=== PATIENT | male | born 1980 | race Caucasian/White ===

== ENCOUNTER 2018-11-04 07:06 | Day surgery (SDC) | payer OTHER, BC ==
--- NOTE | 2018-11-03 12:17 | PCM.PREANE ---
Preanesthetic Assessment - Anesthesia/Transfusion/Family Hx Anesthesia History: Prior Anesthesia Without Reaction Family History of Anesthesia Reaction: No Transfusion History: No Prior Transfusion(s) Intubation History: Unknown - Review of Systems General: No Symptoms Pulmonary: No Symptoms (Former smoker quit 8 years ago. ETOH: couple drinks per week.) Cardiovascular: No Symptoms Gastrointestinal: No Symptoms (GERD on occasion with spicey food.) Neurological: No Symptoms Other: Reports: None - Physical Assessment NPO Status Date: 11/03/18 NPO Status Time: 19:00 Pulse: 63 O2 Sat by Pulse Oximetry: 96 Respiratory Rate: 16 Blood Pressure: 112/66 Temperature: 36.1 C Height: 1.63 m Weight: 77 kg ASA Class: 1 Mental Status: Alert & Oriented x3 Airway Class: Mallampati = 3 Dentition: Reports: Broken Tooth/Teeth, Caries Thyro-Mental Finger Breadths: 3 Mouth Opening Finger Breadths: 3 ROM/Head Extension: Full Lungs: Clear to Auscultation, Normal Respiratory Effort Cardiovascular: Regular Rate, Regular Rhythm, No Murmurs - Lab Values: Laboratory Last Values MRSA (PCR) Negative 11/02/18 10:28 All labs reviewed and noted and within acceptable ranges to proceed with scheduled procedure. - Allergies Allergies/Adverse Reactions: Allergies Allergy/AdvReac Type Severity Reaction Status Date / Time No Known Allergies Allergy Verified 11/03/18 13:32 - Anesthesia Plan Pre-Op Medication Ordered: None - Acknowledgements Anesthesia Type Planned: General Anesthesia (Right interscalene block under US guidance for post opertive pain control requested by Dr. Kelly.) Pt an Appropriate Candidate for the Planned Anesthesia: Yes Alternatives and Risks of Anesthesia Discussed w Pt/Guardian: Yes Pt/Guardian Understands and Agrees with Anesthesia Plan: Yes PreAnesthesia Questionnaire HEENT History: Reports: None Cardiovascular History: Reports: None Respiratory History: Reports: None Gastrointestinal History: Reports: None Genitourinary History: Reports: None NET APPLICATION SUPPORT SPECIALIST History: Reports: None Musculoskeletal History: Reports: Other (See Below) Other Musculoskeletal History: rotator cuff tear Neurological History: Reports: None Psychiatric History: Reports: None Endocrine/Metabolic History: Reports: None Hematologic History: Reports: None Immunologic History: Reports: None Oncologic (Cancer) History: Reports: None Dermatologic History: Reports: None - Past Surgical History Head Surgeries/Procedures: Reports: None HEENT Surgical History: Reports: None Cardiovascular Surgical History: Reports: None Respiratory Surgical History: Reports: None GI Surgical History: Reports: None Female Surgical History: Reports: None Male Surgical History: Reports: Vasectomy Endocrine Surgical History: Reports: None Neurological Surgical History: Reports: None Oncologic Surgical History: Reports: None Dermatological Surgical History: Reports: None - HOME MEDS Home Medications: Home Meds Acetaminophen/HYDROcodone [[place] 325-5 MG] 1 - 2 tab PO Q6H PRN #40 tablet 11/04 [Rx] Cyclobenzaprine [Flexeril] 10 mg PO Q12H PRN #30 tab 11/04/18 [Rx] - CURRENT (IN HOUSE) MEDS Current Meds: Current Medications Epinephrine HCl (Adrenalin) 3 mg .XX ONETIME ETHEL Stop: 11/04/18 14:00 Lactated Ringer's (Ringers, Lactated) 1,000 mls @ 125 mls/hr IV ASDIRECTED ETHEL Stop: 11/04/18 23:00 Lidocaine/Sodium Bicarbonate (Buffered Lidocaine 1% In Ns 8.4%) 0.25 ml IDERM ONETIME PRN PRN Reason: Prior to IV Start Stop: 11/04/18 18:00 Sodium Chloride (Saline Flush) 10 ml FLUSH ASDIRECTED PRN PRN Reason: Keep Vein Open Stop: 11/04/18 18:00
[~2018-11-04 07:06] MED LIST: EPINEPHrine 1 MG/ML 30 ML MDV SCH; EPINEPHrine 1 MG/ML SDV ONE; Lactated Ringers 1,000 ML IV SCH; Lidocaine 1% 4 ML ONE; Lidocaine 1%/Sod Bicarbonate in NS 8.4% 1 ML Syringe IDERM PRN; Midazolam 1 MG/ML 2 ML SDV ONE; Ropivacaine 0.5% 5 MG/ML 30 ML SDV ONE; Sodium Chloride 0.9% 10 ML Syringe FLUSH PRN; fentaNYL 250 MCG/5 ML SDV ONE
[2018-11-04] MEDS ORDERED: Propofol 200 MG/20 ML SDV ONE ×2 (08:00→08:04)
[2018-11-04] MEDS ORDERED: Midazolam 1 MG/ML 2 ML SDV ONE (08:04)
[2018-11-04] MEDS ORDERED: Ketorolac 30 MG/ML SDV ONE ×2 (08:04→08:05)
[2018-11-04] MEDS ORDERED: Lactated Ringers 1,000 ML ONE ×2 (08:04→10:24)
[2018-11-04] MEDS ORDERED: Ondansetron 4 MG/2 ML SDV ONE (08:04)
[2018-11-04] MEDS ORDERED: fentaNYL 100 MCG/2 ML SDV ONE (08:04)
[2018-11-04] MEDS ORDERED: ceFAZolin 1 GM Vial ONE ×2 (08:04→09:21)
[2018-11-04] MEDS ORDERED: Lidocaine 1% 4 ML ONE (08:04)
[2018-11-04] MEDS ORDERED: Dexamethasone 4 MG/ML 5 ML MDV ONE (08:05)
--- NOTE | 2018-11-04 08:17 | PCM.SN ---
- Free Text/Narrative Note: Anesthesia Note: (Right Interscalene Block Note) Date: 11/04/2018 Time Out: 0750 Start: 0750 Stop: 0808 Surgical Procedure: Right SVA with Repeat Rotator Cuff Repair Diagnosis Right shoulder rotator cuff tear Current Procedure: Right interscalene block under US guidance for postoperative pain control requested by Dr. Kelly. Patient chart reviewed, risk/benefits discussed with patient, consent obtained. Patient positioned supine, monitors/alarms on, oxygen placed via nasal cannula at 2 LPM. IV sedation administered: Versed 2mg IV, Fentanyl 50mcg IV given in prior to block placement. Right shoulder prepped with two chloropreps. Sterile drapes placed with aseptic technique noted. Under US guidance, right subclavian artery visualized along with the right brachial plexus. Plexus followed up to C6 cricoid level, and area localized with 2mls of 1% lidocaine. 22gauge 2 inch stimiplex needle advanced under US with 0.8mV with stimulation of biceps noted. Good stimulation noted with decreased voltage and absent at 0.3mVs. 1ml of Normal Saline injected with loss of stimulation noted to confirm needle not placed intraneurally. Incremental dosing of 5mls with negative aspiration noted prior to each injection of 0.5% ropivacaine with 1:200,000 epinephrine. Total volume=30mls. Please refer to nurses noted for vital signs. Angela Diallo CRNA
[2018-11-04] MEDS ORDERED: Phenylephrine/Normal Saline 100 MCG/ML 10 ML Syringe ONE (09:14)
[2018-11-04] MEDS ORDERED: ePHEDrine/Normal Saline 25 MG/5 ML Syringe ONE (09:41)
[2018-11-04] MEDS ORDERED: Ondansetron 4 MG/2 ML SDV IVPUSH PRN (09:48)
[2018-11-04] MEDS ORDERED: fentaNYL 100 MCG/2 ML SDV IVPUSH PRN (09:48)
[2018-11-04] MEDS ORDERED: diphenhydrAMINE 50 MG/ML SDV IVPUSH PRN (09:48)
--- NOTE | 2018-11-04 10:57 | PCM.POSTAN ---
POST ANESTHESIA ASSESSMENT - MENTAL STATUS Mental Status: Alert, Oriented - VITAL SIGNS Pulse Rate: 90 SaO2: 100 Resp Rate: 10 Blood Pressure: 131/69 Temperature: 36.4 C - RESPIRATORY Respiratory Status: Respiratory Rate WNL, Airway Patent, O2 Saturation Stable - CARDIOVASCULAR CV Status: Pulse Rate WNL, Blood Pressure Stable - GASTROINTESTINAL GI Status: No Symptoms - PAIN Pain Score: 0 - POST OP HYDRATION Hydration Status: Adequate & Stable
--- NOTE | 2018-11-04 11:24 | PCM48HPAN ---
Post Anesthesia Note - EVALUATION WITHIN 48HRS OF ANESTHETIC Vital Signs in Normal Range: Yes Patient Participated in Evaluation: Yes Respiratory Function Stable: Yes Airway Patent: Yes Cardiovascular Function Stable: Yes Hydration Status Stable: Yes Pain Control Satisfactory: Yes Nausea and Vomiting Control Satisfactory: Yes Mental Status Recovered: Yes - COMMENTS/OBSERVATIONS Free Text/Narrative:: No anesthetic complications noted.
--- NOTE | 2018-11-04 11:35 | PCM.OPNOTE ---
- General Post-Op/Procedure Note Date of Surgery/Procedure: 11/04/18 Operative Procedure(s): right shoulder video arthroscopy with biceps tenodesis, limited debridement and small rotator cuff repair Pre Op Diagnosis: right shoulder rotator cuff tear Post-Op Diagnosis: right shoulder biceps tendinosis with small rotator cuff tear Anesthesia Technique: General ET Tube, Regional Block Primary Surgeon: Bryan Kelly Anesthesia Provider: Krystal Muhammad Wood Turner: Bessie Cobb EBL in mLs: 5 Complications: None Condition: Good Free Text/Narrative:: Intake & Output 11/03/18 11/04/18 11/04/18 22:59 06:59 14:59 Intake Total 150 Balance 150
--- NOTE | 2018-11-04 12:09 | OR ---
DATE OF OPERATION: 11/04/2018 SURGEON: Bryan Kelly MD OPERATION PERFORMED: Right shoulder video arthroscopy with biceps tenodesis, limited debridement, and small rotator cuff repair. PREOPERATIVE DIAGNOSIS: Right shoulder rotator cuff tear. POSTOPERATIVE DIAGNOSIS: Right shoulder biceps tendinosis with small rotator cuff tear. ANESTHESIA: General endotracheal intubation with regional interscalene block. ANESTHESIA PROVIDER: Alanis Boland. FITNESS AND WELLNESS COORDINATOR: Bessie Cobb PA-C. ESTIMATED BLOOD LOSS: Less than 5 mL. COMPLICATIONS: None. CONDITION: Stable. DESCRIPTION OF PROCEDURE: The patient was identified in the preop holding area. Proper site was marked and identified by the surgeon. The patient was taken back to the operating theater, where after adequate anesthesia, the patient was placed in a lazy left lateral decubitus position. A wedge was placed posteriorly. All bony prominences were well padded. The patient was secured to the table. At this time, the right upper extremity was sterilely prepped and draped in the usual sterile fashion. OR time-out was performed. The patient received 2 g of IV Ancef and 10 pounds of traction was applied to the right upper extremity. At this time, standard posterior incision was made. Scope trocar was introduced to the glenohumeral joint. Utilizing the previous incision, I created an anterior portal at this time. Subscapularis tendon was intact. The cartilage showed no signs of chondromalacia. The previous rotator cuff repair showed good adequate repair with no signs of repeat tear of the supraspinatus with complete hindu of the footprint compared to his intact cuff. At this time, though the patient was noted to have severe biceps tendinitis with severe erythema as well as peel back of the superior labrum. At this time, it was decided that a biceps tenodesis needed to be performed. A FiberWire was then passed through the biceps tendon using the spinal needle and a tenotomy was performed at the base of the labrum. A limited debridement was then done of the superior labrum as well as synovitis in the previous bicipital region. Attention was then turned to the subacromial space. At this time, a limited debridement was done in the subacromial space of synovitis. There was really no erythema. I did probe the supraspinatus and there was a little bit of delamination noted at the very anterior portion of the supraspinatus, so at this time, I did decide that I would do a FiberTape repair with a single anchor out laterally. The FiberTape was passed in a horizontal mattress fashion through the very anterior portion of the supraspinatus and was brought out laterally with a 4.75 mm Arthrex SwiveLock anchor. The tap was used out laterally and the anchor was placed. Tension was placed across the suture. I did also use the FiberWire and tied it as well. It had adequate watertight repair of the delamination portion of the very anterior portion of the supraspinatus. At this time, the biceps tendon sutures were tied in the rotator interval for soft tissue biceps tenodesis. Excess saline was drained from the shoulder. 3-0 nylon sutures were used for closure of the skin. The patient had a sterile soft dressing applied and a pillow sling, and sent to PACU in stable condition. MARIPOSA /[id number]
== END 2018-11-04 12:05 | disposition home or self-care (01) ==
LOC: JD.SDS 07:06
PROVIDERS: ATTEND Orthopaedic Surgery
DX: M75.21 Bicipital tendinitis, right shoulder (principal); M75.101 Unspecified rotator cuff tear or rupture of right shoulder, not specified as traumatic; Z87.891 Personal history of nicotine dependence
CPT/HCPCS: 29827; 29828; 64416; 87641; C1713; J0171; J0690; J1100; J1885; J2001; J2250; J2370; J2405; J2704; J2795; J3010; J7050; J7120

== ENCOUNTER 2019-11-15 21:28 | Emergency (ER) | payer BC, OTHER ==
--- NOTE | 2019-11-15 22:12 | EDM.PDOC ---
ED HPI GENERAL MEDICAL PROBLEM - General Chief Complaint: Genitourinary Problem Stated Complaint: BURNING UPON URINATION Time Seen by Provider: 11/15/19 21:29 Source of Information: Reports: Patient History Limitations: Reports: No Limitations - History of Present Illness INITIAL COMMENTS - FREE TEXT/NARRATIVE: Patient is a 39-year-old male who presents to the emergency department with complaints of burning with urination, frequency, and blood in his urine. Symptoms started earlier today. He denies any fever, chills, nausea, vomiting, or back pain. He does have some pain in his penis; however, denies any abnormal discharge. He denies the possibility of a sexually transmitted disease. He has no history of urinary tract infections or kidney stones. Penis Pain Score (Numeric/FACES): 4 - Related Data Allergies Allergy/AdvReac Type Severity Reaction Status Date / Time No Known Allergies Allergy Verified 11/15/19 21:39 Past Medical History HEENT History: Reports: None Cardiovascular History: Reports: None Respiratory History: Reports: None Gastrointestinal History: Reports: None Genitourinary History: Reports: None DAMPENER OPERATOR History: Reports: None Musculoskeletal History: Reports: Other (See Below) Other Musculoskeletal History: rotator cuff tear Neurological History: Reports: None Psychiatric History: Reports: None Endocrine/Metabolic History: Reports: None Hematologic History: Reports: None Immunologic History: Reports: None Oncologic (Cancer) History: Reports: None Dermatologic History: Reports: None - Past Surgical History Head Surgeries/Procedures: Reports: None HEENT Surgical History: Reports: None Cardiovascular Surgical History: Reports: None Respiratory Surgical History: Reports: None GI Surgical History: Reports: None Male Surgical History: Reports: Vasectomy Endocrine Surgical History: Reports: None Neurological Surgical History: Reports: None Oncologic Surgical History: Reports: None Dermatological Surgical History: Reports: None Social & Family History - Tobacco Use Smoking Status *Q: Never Smoker - Caffeine Use Caffeine Use: Reports: Soda ED ROS GENERAL - Review of Systems Review Of Systems: See Below Constitutional: Denies: Fever, Chills HEENT: Reports: No Symptoms Respiratory: Reports: No Symptoms Cardiovascular: Reports: No Symptoms Endocrine: Reports: No Symptoms GI/Abdominal: Reports: No Symptoms : Reports: Dysuria, Frequency, Hematuria. Denies: Flank Pain Musculoskeletal: Reports: No Symptoms Skin: Reports: No Symptoms Neurological: Reports: No Symptoms ED EXAM, RENAL/ - Physical Exam Exam: See Below Exam Limited By: No Limitations General Appearance: Alert, WD/WN, No Apparent Distress Respiratory/Chest: No Respiratory Distress, Lungs Clear, Normal Breath Sounds, No Accessory Muscle Use, Chest Non-Tender Cardiovascular: Normal Peripheral Pulses, Regular Rate, Rhythm, No Edema, No Gallop, No JVD, No Murmur, No Rub GI/Abdominal: Normal Bowel Sounds, Soft, Non-Tender, No Organomegaly, No Distention, No Abnormal Bruit, No Mass Back Exam: Normal Inspection, Full Range of Motion. No: CVA Tenderness (L), CVA Tenderness (R) Neurological: Alert, Oriented, CN II-XII Intact, Normal Cognition, Normal Gait, Normal Reflexes, No Motor/Sensory Deficits Psychiatric: Normal Affect, Normal Mood Skin Exam: Warm, Dry, Intact, Normal Color, No Rash Course - Vital Signs Last Recorded V/S: Last Vital Signs Temp 97.3 F 11/15/19 21:36 Pulse 78 11/15/19 21:36 Resp 16 11/15/19 21:36 BP 132/85 11/15/19 21:36 Pulse Ox 97 11/15/19 21:36 - Orders/Labs/Meds Labs: Laboratory Tests 11/15/19 11/15/19 11/15/19 Range/Units 21:41 21:59 21:59 WBC 5.78 (4.23-9.07) K/mm3 RBC 4.67 (4.63-6.08) M/mm3 Hgb 13.7 (13.7-17.5) gm/dl Hct 41.2 (40.1-51.0) % MCV 88.2 (79.0-92.2) fl MCH 29.3 (25.7-32.2) pg MCHC 33.3 (32.2-35.5) g/dl RDW Std Deviation 41.9 (35.1-43.9) fL Plt Count 197 (163-337) K/mm3 MPV 11.4 (9.4-12.3) fl Neut % (Auto) 43.2 (34.0-67.9) % Lymph % (Auto) 42.2 (21.8-53.1) % [place] % (Auto) 10.6 (5.3-12.2) % Eos % (Auto) 3.3 (0.8-7.0) Baso % (Auto) 0.5 (0.1-1.2) % Neut # (Auto) 2.50 (1.78-5.38) K/mm3 Lymph # (Auto) 2.44 (1.32-3.57) K/mm3 [place] # (Auto) 0.61 (0.30-0.82) K/mm3 Eos # (Auto) 0.19 (0.04-0.54) K/mm3 Baso # (Auto) 0.03 (0.01-0.08) K/mm3 Sodium 138 (136-145) mEq/L Potassium 3.5 (3.5-5.1) mEq/L Chloride 103 (98-107) mEq/L Carbon Dioxide 26 (21-32) mEq/L Anion Gap 12.5 (5-15) BUN 20 H (7-18) mg/dL Creatinine 1.2 (0.7-1.3) mg/dL Est Cr Clr Drug Dosing 73.32 mL/min Estimated GFR (MDRD) > 60 (>60) mL/min BUN/Creatinine Ratio 16.7 (14-18) Glucose 128 H (74-106) mg/dL Calcium 8.8 (8.5-10.1) mg/dL Total Bilirubin 0.2 (0.2-1.0) mg/dL AST 13 L (15-37) U/L ALT 26 (16-63) U/L Alkaline Phosphatase 51 (46-116) U/L Total Protein 7.2 (6.4-8.2) g/dl Albumin 3.9 (3.4-5.0) g/dl Globulin 3.3 gm/dL Albumin/Globulin Ratio 1.2 (1-2) Urine Color Yellow (Yellow) Urine Appearance Slt cloudy H (Clear) Urine pH 6.0 (5.0-8.0) Ur Specific [place] > or = 1.030 (1.005-1.030) Urine Protein 2+ H (Negative) Urine Glucose (UA) Negative (Negative) Urine Ketones Negative (Negative) Urine Occult Blood 3+ H (Negative) Urine Nitrite Negative (Negative) Urine Bilirubin Negative (Negative) Urine Urobilinogen 0.2 (0.2-1.0) Ur Leukocyte Esterase Negative (Negative) Urine RBC 30-40 H (0-5) /hpf Urine WBC 0-5 (0-5) /hpf Ur Squamous Epith Cells 0-5 (0-5) /hpf Urine Bacteria Few (FEW) /hpf Urine Mucus Few (FEW) /hpf - Re-Assessments/Exams Free Text/Narrative Re-Assessment/Exam: Patient's history and exam are concerning for a urinary tract infection versus possible kidney stone, however patient is not having flank pain. We will start with a urinalysis. 11/15/19 22:18 Urinalysis was negative for infection, but was significant for 3+ occult blood and 3-40 RBCs. I have added on a CBC, CMP, and CT of the abdomen pelvis without contrast to rule out kidney stone and evaluate patient's kidney function. He continues to deny pain. 11/15/19 22:40 Hematology was grossly unremarkable. CT of the abdomen pelvis as follows: 1. Decompressed bladder. Moderate bladder wall thickening, which could be secondary to incomplete distention and/or cystitis-favor cystitis correlate with urinalysis. Fat stranding surrounding the urinary bladder. 2. Fat stranding surrounding bilateral ureters, right greater than left, suspect a sending infection. Limited evaluation for pyelonephritis in the absence of IV contrast. Urinalysis was negative for infection. He has no flank pain, nausea, vomiting, fever, or chills. Discussed these findings with the patient. I recommend he follows up with urologist for further evaluation and possible cystoscopy to determine the cause of his cystitis in the absence of infection. Discussed limiting caffeine and alcohol consumption as this will likely irritate the latter worse. He may use [id number] Azo as needed for the discomfort. Discharge instructions as documented. Departure - Departure Time of Disposition: 22:41 Disposition: Home, Self-Care 01 Condition: Good Clinical Impression: Cystitis - Discharge Information *PRESCRIPTION DRUG MONITORING PROGRAM REVIEWED*: No *COPY OF PRESCRIPTION DRUG MONITORING REPORT IN PATIENT RAKAN: No Instructions: Hemorrhagic Cystitis Referrals: Tristan Goode MD [Ordering Only Provider] - Forms: ED Department Discharge Additional Instructions: You were seen in the emergency department today for burning with urination, frequency, and blood in your urine. Your work-up consisted of a blood work, urinalysis, and a CT scan of your abdomen pelvis. Your blood work was found to be normal. Urinalysis did show blood in your urine, but there were no signs of infection. CT scan of the abdomen and pelvis showed inflammation within your bladder, but no signs of a kidney stone. Based on these findings, I would recommend that you follow-up with the urologist for a further work-up to determine the cause of your cystitis in the absence of infection. Recommend that you avoid caffeine and alcohol as this will likely irritate your bladder further. Increase your fluid intake. You may use [id number] Azo as needed for the burning and discomfort. Recommend that you call neurologist, Dr. Goode, first thing tomorrow morning to set up an appointment. The number to schedule with him as listed below. Return to the ER as needed. Sepsis Event Note (ED) - Evaluation Sepsis Screening Result: No Definite Risk
--- NOTE | 2019-11-16 06:19 | CT ---
CT abdomen and pelvis Technique: Multiple axial sections were obtained from above the dome of the diaphragm inferiorly to the pubic symphysis. Intravenous contrast and oral contrast not utilized. Comparison: No prior abdominal imaging. Findings: Kidneys show no abnormal calcifications. Slight haziness around the right ureter is seen possibly representing change from infection. No calcifications are seen within the bladder. Other findings: Visualized lung bases showed nothing acute. Liver contains no focal parenchymal abnormality. Gallbladder is collapsed but shows no calcified gallstones. Adrenal glands show no nodule. Spleen appears within normal limits. Pancreas is normal. Aorta shows no aneurysm. No retroperitoneal adenopathy is seen. Appendix is seen which is normal. No pelvic mass or adenopathy is seen. No free fluid or inflammatory change is appreciated. Impression: 1. No renal calculi, ureteral dilatation or or ureteral stone is seen. 2. Slight haziness around the right ureter raising the possibility of change from infection or recently passed ureteral stone. Please correlate if patient has symptoms of UTI. 3. No other acute finding is appreciated on noncontrast CT study of the abdomen and pelvis. Diagnostic code #3 Agree with preliminary report issued by [facility] ([facility] preliminary report dictated on 11/15/19, 1121 Central Daylight Time) Study was dictated in MDT
== END 2019-11-15 22:50 | disposition home or self-care (01) ==
LOC: JD.ED 21:28
DX: N30.90 Cystitis, unspecified without hematuria (principal)
CPT/HCPCS: 36415; 74176; 74176-26; 80053; 81001; 85025; 99283; 99284-25

== ENCOUNTER 2021-04-25 06:24 | Day surgery (SDC) | payer BC, OTHER ==
[~2021-04-25 06:24] MED LIST changes: -EPINEPHrine 1 MG/ML 30 ML MDV SCH; -EPINEPHrine 1 MG/ML SDV ONE; -Lidocaine 1% 4 ML ONE; -Midazolam 1 MG/ML 2 ML SDV ONE; -Ropivacaine 0.5% 5 MG/ML 30 ML SDV ONE; -fentaNYL 250 MCG/5 ML SDV ONE
[2021-04-25] MEDS ORDERED: Rocuronium 50 MG/5 ML Vial ONE (06:44)
[2021-04-25] MEDS ORDERED: Propofol 200 MG/20 ML SDV ONE (06:44)
[2021-04-25] MEDS ORDERED: Lidocaine 1% 4 ML ONE (06:44)
[2021-04-25] MEDS ORDERED: Ondansetron 4 MG/2 ML SDV ONE (06:44)
[2021-04-25] MEDS ORDERED: Midazolam 1 MG/ML 2 ML SDV ONE (06:45)
[2021-04-25] MEDS ORDERED: fentaNYL 250 MCG/5 ML SDV ONE (06:45)
[2021-04-25] MEDS ORDERED: Lidocaine 1% 2 ML ONE (06:50)
[2021-04-25] MEDS ORDERED: Ropivacaine 0.5% 5 MG/ML 30 ML SDV ONE (06:57)
[2021-04-25] MEDS ORDERED: EPINEPHrine 1 MG/ML SDV ONE (06:57)
[2021-04-25] MEDS ORDERED: EPINEPHrine 1 MG/ML 30 ML MDV IRR SCH (07:00)
--- NOTE | 2021-04-25 07:16 | PCM.PREANE ---
Preanesthetic Assessment - Procedure Proposed Procedure: right shoulder video arthrosocppy - Anesthesia/Transfusion/Family Hx Anesthesia History: Prior Anesthesia Without Reaction Family History of Anesthesia Reaction: No Transfusion History: No Prior Transfusion(s) Intubation History: Unknown - Review of Systems General: No Symptoms Pulmonary: No Symptoms Gastrointestinal: No Symptoms Neurological: No Symptoms Other: Reports: None - Physical Assessment NPO Status Date: 04/24/21 NPO Status Time: 20:30 Vital Signs: 109/73 69 97% 16 97.4 Height: 5 ft 4 in Weight: 78 kg ASA Class: 2 Mental Status: Alert & Oriented x3 Airway Class: Mallampati = 1 Dentition: Reports: Normal Dentition Thyro-Mental Finger Breadths: 3 Mouth Opening Finger Breadths: 3 ROM/Head Extension: Full Lungs: Clear to Auscultation Cardiovascular: Regular Rate, Regular Rhythm - Allergies Allergies/Adverse Reactions: Allergies Allergy/AdvReac Type Severity Reaction Status Date / Time No Known Allergies Allergy Verified 04/24/21 14:09 - Blood Blood Available: No - Acknowledgements Anesthesia Type Planned: General Anesthesia, Regional Block Pt an Appropriate Candidate for the Planned Anesthesia: Yes Alternatives and Risks of Anesthesia Discussed w Pt/Guardian: Yes Pt/Guardian Understands and Agrees with Anesthesia Plan: Yes PreAnesthesia Questionnaire HEENT History: Reports: None Cardiovascular History: Reports: None Respiratory History: Reports: None Gastrointestinal History: Reports: None Genitourinary History: Reports: None [employer] WORK[employer] History: Reports: None Musculoskeletal History: Reports: Other (See Below) Other Musculoskeletal History: rotator cuff tear Neurological History: Reports: None Psychiatric History: Reports: None Endocrine/Metabolic History: Reports: None Hematologic History: Reports: None Immunologic History: Reports: None Oncologic (Cancer) History: Reports: None Dermatologic History: Reports: None - Infectious Disease History Infectious Disease History: Reports: None - Past Surgical History Head Surgeries/Procedures: Reports: None HEENT Surgical History: Reports: None Cardiovascular Surgical History: Reports: None Respiratory Surgical History: Reports: None GI Surgical History: Reports: None Female Surgical History: Reports: None Male Surgical History: Reports: Vasectomy Endocrine Surgical History: Reports: None Neurological Surgical History: Reports: None Musculoskeletal Surgical History: Reports: Shoulder Surgery Oncologic Surgical History: Reports: None Dermatological Surgical History: Reports: None - SUBSTANCE USE Tobacco Use Status *Q: Former Tobacco User Tobacco Use Within Last Twelve Months: No Second Hand Smoke Exposure: No Days Per Week of Alcohol Use: 7 Number of Drinks Per Day: 1 Total Drinks Per Week: 7 Recreational Drug Use History: No - HOME MEDS Home Medications: Home Meds . [No Known Home Meds] 04/24/21 [History] - CURRENT (IN HOUSE) MEDS Current Meds: Current Medications Epinephrine HCl (Epinephrine 1 Mg/Ml 30 Ml Mdv) 3 mg IRR ONETIME ETHEL Stop: 04/25/21 11:00 Lactated Ringer's (Ringers, Lactated) 1,000 mls @ 125 mls/hr IV ASDIRECTED ETHEL Stop: 04/25/21 23:00 Lidocaine/Sodium Bicarbonate (Lidocaine 1%/Sod Bicarbonate In Ns 8.4% 1 Ml Syringe) 0.25 ml IDERM ONETIME PRN PRN Reason: Prior to IV Start Stop: 04/25/21 23:00 Sodium Chloride (Sodium Chloride 0.9% 10 Ml Syringe) 10 ml FLUSH ASDIRECTED PRN PRN Reason: Keep Vein Open Stop: 04/25/21 23:00 Discontinued Medications Epinephrine HCl (Epinephrine 1 Mg/Ml Sdv) Confirm Administered Dose 1 mg .ROUTE .STK-MED ONE Stop: 04/25/21 06:58 Fentanyl (Fentanyl 250 Mcg/5 Ml Sdv) Confirm Administered Dose 250 mcg .ROUTE .STK-MED ONE Stop: 04/25/21 06:46 Lidocaine HCl (Xylocaine-Mpf 1%) Confirm Administered Dose 4 mls @ as directed .ROUTE .STK-MED ONE Stop: 04/25/21 06:45 Lidocaine HCl (Xylocaine-Mpf 1%) Confirm Administered Dose 2 mls @ as directed .ROUTE .STK-MED ONE Stop: 04/25/21 06:51 Midazolam HCl (Midazolam 1 Mg/Ml 2 Ml Sdv) Confirm Administered Dose 2 mg .ROUTE .STK-MED ONE Stop: 04/25/21 06:46 Ondansetron HCl (Ondansetron 4 Mg/2 Ml Sdv) Confirm Administered Dose 4 mg .ROUTE .STK-MED ONE Stop: 04/25/21 06:45 Propofol (Propofol 200 Mg/20 Ml Sdv) Confirm Administered Dose 200 mg .ROUTE .STK-MED ONE Stop: 04/25/21 06:45 Rocuronium Rugby (Rocuronium 50 Mg/5 Ml Vial) Confirm Administered Dose 50 mg .ROUTE .[email or web address] ONE Stop: 04/25/21 06:45 Ropivacaine (Ropivacaine 0.5% 5 Mg/Ml 30 Ml Sdv) Confirm Administered Dose 30 ml .ROUTE .[email or web address] ONE Stop: 04/25/21 06:58
--- NOTE | 2021-04-25 07:57 | PCM.SN.2 ---
- Free Text/Narrative Note: Date: 04/25/21 Time out: 729 Start time: 729 End time: [address] right interscalene block with ultrasound guidance and nerve stimulator for post op pain control per Dr. Kelly and patient. Preop diagnosis right shoulder pain. Procedure is right shoulder arthrosocpy Informed consent obtained. Monitors and O2 placed at 2 l per n/c. Versed 2 mg and Fentanyl 100 mcg given IV total. Patient awake and talking during procedure. Right neck and clavicle area prepped with chlorprep. Sterile gloves, hat and mask worn. US probe with sterile sleeve placed midclavicular with ID of brachial plexus and subclavian artery. Brachial plexus followed cephalad to level of cricoid. Lidocaine 1% local anesthetic injected prior to block placement. 22 g 2 inch stimplex needle advanced with US guidance to brachial plexus. Positive forearm response at .4mA with nerve stimulator. Ceased with saline injection. Ropivacaine 0.5% with epi 1:200,000 injected in increments of 5 ml with negative aspiration before each injection to a total of 25 ml. Good spread of local anesthetic seen on US. Patient tolerated procedure well. Vitals stable with no complaints. [email or web address]
[2021-04-25] MEDS ORDERED: ceFAZolin 1 GM Vial ONE (08:25)
[2021-04-25] MEDS ORDERED: Dexamethasone 4 MG/ML 5 ML MDV ONE (08:31)
[2021-04-25] MEDS ORDERED: fentaNYL 100 MCG/2 ML SDV IVPUSH PRN (08:50)
[2021-04-25] MEDS ORDERED: Ondansetron 4 MG/2 ML SDV IVPUSH PRN (08:50)
[2021-04-25] MEDS ORDERED: HYDROmorphone 0.5 MG/0.5 ML Syringe IVPUSH PRN (08:50)
[2021-04-25] MEDS ORDERED: Lactated Ringers 1,000 ML ONE (09:01)
[2021-04-25] MEDS ORDERED: Ketorolac 30 MG/ML SDV ONE (10:01)
--- NOTE | 2021-04-25 10:43 | PCM.POSTAN ---
POST ANESTHESIA ASSESSMENT - MENTAL STATUS Mental Status: Alert, Oriented - VITAL SIGNS Vital Signs: Last Vital Signs Temp 97.5 F 04/25/21 06:30 Pulse 69 04/25/21 06:30 Resp 16 04/25/21 06:30 BP 109/73 04/25/21 06:30 Pulse Ox 97 04/25/21 06:30 1035 139/73 94 20 97.7 100% - RESPIRATORY Respiratory Status: Respiratory Rate WNL, Airway Patent, O2 Saturation Stable, Supplemental Oxygen - CARDIOVASCULAR CV Status: Pulse Rate WNL, Blood Pressure Stable - GASTROINTESTINAL GI Status: No Symptoms - PAIN Pain Score: 0 - POST OP HYDRATION Hydration Status: Adequate & Stable
[2021-04-25] MEDS ORDERED: Acetaminophen/HYDROcodone 325-5 MG Tab PO PRN (10:51)
[2021-04-25] MEDS ORDERED: Cyclobenzaprine 10 MG Tab PO PRN (10:51)
--- NOTE | 2021-05-06 16:38 | PCM.OPNOTE ---
- General Post-Op/Procedure Note Date of Surgery/Procedure: 04/25/21 Operative Procedure(s): right shoulder video arthroscopy with SLAP repair and open biceps tenodesis Pre Op Diagnosis: right shoulder pain with biceps pain Post-Op Diagnosis: right SLAP tear with biceps tendon pain Anesthesia Technique: General ET Tube, Regional Block Primary Surgeon: Bryan Kelly Anesthesia Provider: Buck Aviles Clay Burner: Bessie Cobb EBL in mLs: 5 Complications: None Condition: Good
--- NOTE | 2021-05-06 18:32 | OR ---
DATE OF OPERATION: 04/25/2021 SURGEON: Bryan Kelly MD OPERATION PERFORMED: Right shoulder video arthroscopy with SLAP repair and open biceps tenodesis. PREOPERATIVE DIAGNOSIS: Right shoulder pain with biceps pain. POSTOPERATIVE DIAGNOSIS: Right shoulder SLAP tear with biceps tendon pain. ANESTHESIA: General endotracheal intubation with regional interscalene block. ANESTHESIA PROVIDER: Buck Aviles CRNA INDUSTRIAL ENGINEERING TECHNOLOGIST: Bessie Cobb PA-C. ESTIMATED BLOOD LOSS: 5 mL. COMPLICATIONS: None. CONDITION: Stable. DESCRIPTION OF PROCEDURE: The patient was identified in the preoperative holding area. Proper site was marked and identified by the surgeon. The patient was taken back to the operating theater where after adequate anesthesia, the patient was placed in the lazy left lateral decubitus position. A wedge was placed posteriorly. The patient was secured to the table. Right upper extremity was then sterilely prepped and draped in the usual sterile fashion. OR time-out was performed. Patient received 2 g of IV Ancef. 12 pounds of traction was applied to the right upper extremity. A standard posterior incision was made. Scope trocar was then introduced to the glenohumeral joint. With the use of a spinal needle, anterior portal was created from an outside-in technique. The patient was noted to have a large SLAP tear from roughly the 1:30 position to roughly the 10:30 position. At this time, a rasp and a resector were used to get a good bony bleeding bed and I was able to place 4 Arthrex 2.9 mm PushLock anchors from anterior to posterior with good fixation of the rim having to switch portals at one point to be able to access the posterior portion. The subscapularis was intact. 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 The undersurface of the rotator cuff was intact with no signs of tearing. We did look into subacromial space, again no signs of rotator cuff tear. At this time, scope trocar was removed. Incision was made near the pectoralis tendon near where the biceps groove would be. Blunt dissection was taken down to the bicipital groove. The biceps tendon was identified. It was noted to be completely scarred, and I could lift the patient up off the table to where it had scarred into the groove, but at this time since he was having pain, we did perform an open biceps tenodesis, I resected it just approximately to where it was in the groove. Whipstitch was then placed at the end of the biceps tendon. A drill hole was drilled into the bicipital groove just superior to the pect tendon. A Notorious Juggernaut anchor was then placed and the tendon as well as anchor then was placed into the humerus and the interference screw was placed. It was found to have adequate fixation of the biceps tendon at this time. Adequate saline was irrigated through the wound. 2- 0 Vicryl was used subcutaneously, and nylon was used for skin closure. The patient was placed in a sterile soft dressing and a pillow sling and tolerated the procedure well. MARIPOSA /[id number]
== END 2021-04-25 12:42 | disposition home or self-care (01) ==
LOC: JD.SDS 06:24
PROVIDERS: ATTEND Orthopaedic Surgery
DX: S43.431A Superior glenoid labrum lesion of right shoulder, initial encounter (principal); M94.211 Chondromalacia, right shoulder; Z98.890 Other specified postprocedural states; Z87.891 Personal history of nicotine dependence
CPT/HCPCS: 23430; 29807; A9270; C1713; J0171; J0690; J1100; J1885; J2250; J2405; J2704; J2710; J2795; J3010; J7120; 01630; 64415; 76942

== ENCOUNTER 2023-03-19 06:45 | Day surgery (SDC) | payer OTHER, BC ==
[~2023-03-19 06:45] MED LIST changes: -Lidocaine 1%/Sod Bicarbonate in NS 8.4% 1 ML Syringe IDERM PRN; +Sodium Chloride 0.9% 10 ML Syringe FLUSH SCH
[2023-03-19] MEDS ORDERED: Ropivacaine 0.5% 5 MG/ML 30 ML SDV ONE (07:53)
[2023-03-19] MEDS ORDERED: Midazolam 1 MG/ML 2 ML SDV ONE (08:00)
[2023-03-19] MEDS ORDERED: ceFAZolin 2 GM Vial ONE (08:00)
[2023-03-19] MEDS ORDERED: fentaNYL 100 MCG/2 ML SDV ONE (08:00)
[2023-03-19] MEDS ORDERED: ePHEDrine 50 MG/ML SDV ONE (08:00)
[2023-03-19] MEDS ORDERED: Propofol 200 MG/20 ML SDV ONE (08:09)
[2023-03-19] MEDS ORDERED: EPINEPHrine 1 MG/ML 30 ML MDV IRR ONE (08:30)
[2023-03-19] MEDS ORDERED: Ketorolac 30 MG/ML SDV ONE (08:32)
[2023-03-19] MEDS ORDERED: Rocuronium 50 MG/5 ML Vial ONE ×2 (08:32→09:40)
[2023-03-19] MEDS ORDERED: Ondansetron 4 MG/2 ML SDV ONE (08:32)
[2023-03-19] MEDS ORDERED: Lactated Ringers 1,000 ML IV ONE (09:30)
[2023-03-19] MEDS ORDERED: Acetaminophen/HYDROcodone 325-5 MG Tab PO PRN (10:16)
[2023-03-19] MEDS ORDERED: Cyclobenzaprine 10 MG Tab PO PRN (10:16)
== END 2023-03-19 11:58 | disposition home or self-care (01) ==
LOC: JD.SDS 06:45
PROVIDERS: ATTEND Orthopaedic Surgery
DX: M75.122 Complete rotator cuff tear or rupture of left shoulder, not specified as traumatic (principal); M75.22 Bicipital tendinitis, left shoulder; M65.812 Other synovitis and tenosynovitis, left shoulder; Z79.899 Other long term (current) drug therapy
CPT/HCPCS: 29826; 29827; 64415; C1713; J0171; J0690; J1885; J2250; J2405; J2704; J2795; J3010; J7120; 01630; J3490